=== PATIENT | female | born 1995 | race Two or more races ===

== ENCOUNTER → 2020-11-14 | Outpatient (CLI) | payer OTHER ==
[~2020-11-14] MED LIST: PRAMET FA TAB1 EA PO
== END ==
LOC: RAD 07:23
DX: F41.9 Anxiety disorder, unspecified (principal); G56.03 Carpal tunnel syndrome, bilateral upper limbs; M47.812 Spondylosis without myelopathy or radiculopathy, cervical region; M54.2 Cervicalgia; G44.209 Tension-type headache, unspecified, not intractable
CPT/HCPCS: 72040